=== PATIENT | female | born 1945 | race Caucasian/White ===

== ENCOUNTER 2020-11-23 13:27 | Outpatient (CLI) | payer MEDICARE, SELFPAY ==
--- NOTE | ~2020-11-23 | DEXA_ITS ---
Bone Density Report Name: Jazmín Ogden Age: 75 Sex: Female Ethnicity: White Date of : 1945 Indication: postmenopausal; parental hip fracture; height loss; Referring Provider: Melany Moses Study: Bone densitometry was performed. Exam Date: November 23, 2020 Accession number: [id number] Bone Density: Region BMD T-score Z-score Classification AP Spine (L1-L4) 1.085 0.3 2.8 Normal Femoral Neck (Left) 0.655 -1.8 0.4 Osteopenia Total Hip (Left) 0.781 -1.3 0.6 Osteopenia Total Hip Bilateral Avg 0.762 -1.5 0.4 Osteopenia Femoral Neck (Right) 0.672 -1.6 0.6 Osteopenia Total Hip (Right) 0.743 -1.6 0.2 Osteopenia World Health Organization criteria for BMD impression classify patients as: Normal (T-score at or above -1.0), Osteopenia (T-score between -1.0 and -2.5), or Osteoporosis (T-score at or below -2.5). 10-year Fracture Risk(1): Major Osteoporotic Fracture 22% Hip Fracture 13% Reported Risk Factors: [place] (), Neck BMD=0.655, BMI=23.8, parental fracture (1) FRAX(R) Version 3.08. Fracture probability calculated for an untreated patient. Fracture probability may be lower if the patient has received treatment. Clinical Information Provided by Patient: Parent has had a hip fracture Has used the following medications: Vitamin D Patient maximum height was 62 Menopause Age: 49 Drinks caffeinated beverages Onset of menses at age 16 Number of children 3 Impression: The patient has low bone mass, based on the Left Femoral Neck T-score. The patient has an estimated ten-year risk of hip fracture of 13% and an estimated ten-year risk of major fracture of 22%, based on the WHO FRAX algorithm. The patient has risk factors, including: parental hip fracture. Discussion: BONE DENSITY IS LOW AT ONE OR MORE SKELETAL SITES. THE PATIENT'S BMD AND CLINICAL RISK FACTORS CONTRIBUTE TO THIS PATIENT'S HIGH RISK OF FRACTURE. This patient's lowest T-score is low at one or more skeletal sites. It meets the World Health Organization's (WHO) criteria for ?low bone mass? (T-score between -1.0 and -2.5). The patient's 10-year risk of hip fracture and 10 year risk of a major osteoporotic fracture as calculated by FRAX exceeds the threshold where pharmacological therapy is recommended by the National Osteoporosis Foundation (NOF). However, all treatment decisions require clinical judgment and consideration of individual patient factors, including patient preferences, comorbidities, previous drug use, risk factors not captured in the FRAX model (e.g., frailty, falls, vitamin D deficiency, increased bone turnover, interval significant decline in bone density) and possible under or overestimation of fracture risk by FRAX. The patient should follow a healthful lifestyle (good nutrition with adequate calcium and vitamin D, and appropr
--- NOTE | ~2020-11-23 | MM_ITS ---
EXAMINATION: MM screening daron BI w carlos HISTORY: Screening mammogram TECHNIQUE: Craniocaudal and mediolateral oblique 3-D tomosynthesis images were obtained and synthetic 2-D images were generated. CAD analysis was submitted and interpreted. COMPARISON: 03/15/2017 diagnostic right mammogram 03/02/2017 bilateral digital screening mammogram BREAST PARENCHYMAL COMPOSITION: There are scattered areas of fibroglandular density. FINDINGS: There is no evidence of suspicious mass, calcification, or architectural distortion to sugg est malignancy in either breast. There has been no suspicious interval change. IMPRESSION: 1. No mammographic evidence of malignancy. 2. Recommend routine screening mammography in one year. BI-RADS Category 1: Negative Reviewed, dictated and finalized at location A.
== END 2020-11-23 13:28 | disposition home or self-care (01) ==
LOC: ANHIMG 13:29
PROVIDERS: PCP Internal Medicine; Visit Provider Nurse Practitioner
DX: Z12.31 Encounter for screening mammogram for malignant neoplasm of breast (principal); Z78.0 Asymptomatic menopausal state; M85.89 Other specified disorders of bone density and structure, multiple sites
CPT/HCPCS: 77063; 77067; 77080

== ENCOUNTER 2022-03-07 13:23 | Outpatient (CLI) | payer MEDICARE, SELFPAY ==
--- NOTE | ~2022-03-07 | MM_ITS ---
EXAMINATION: MM screening daron BI w carlos HISTORY: Screening mammogram TECHNIQUE: Craniocaudal and mediolateral oblique 3-D tomosynthesis images were obtained and synthetic 2-D images were generated. CAD analysis was submitted and interpreted. COMPARISON: 11/23/2020 bilateral screening mammogram 03/15/2017 diagnostic right mammogram 03/02/2017 bilateral screening mammogram BREAST PARENCHYMAL COMPOSITION: There are scattered areas of fibroglandular density. FINDINGS: There is no evidence of suspicious mass, calcification, or architectural distortion to sugg est malignancy in either breast. There has been no suspicious interval change. IMPRESSION: 1. No mammographic evidence of malignancy. 2. Recommend routine screening mammography in one year. BI-RADS Category 1: Negative Reviewed, dictated and finalized at location A. E BUILDER
--- NOTE | ~2022-03-07 | DEXA_ITS ---
Bone Density Report Name: BLAYNE ROCK Age: 77 Sex: Female Ethnicity: White Date of : 1945 Indication: osteopenia; monitoring treatment; parental hip fracture; height loss; inflammatory bowel disease; postmenopausal Referring Provider: MONICA SHAW Study: Bone densitometry was performed. Exam Date: March 07, 2022 Accession number: [id number] Bone Density: Region BMD T-score Z-score Classification AP Spine(L1, L2, L4) 1.081 0.4 3.0 Normal Femoral Neck (Left) 0.682 -1.5 0.7 Osteopenia Total Hip (Left) 0.791 -1.2 0.7 Osteopenia Femoral Neck (Right) 0.691 -1.4 0.8 Osteopenia Total Hip (Right) 0.758 -1.5 0.4 Osteopenia Total Hip Mean 0.775 -1.4 0.6 Osteopenia World Health Organization criteria for BMD impression classify patients as: Normal (T-score at or above -1.0), Osteopenia (T-score between -1.0 and -2.5), or Osteoporosis (T-score at or below -2.5). 10-year Fracture Risk: FRAX not reported because: Treated for osteoporosis Previous Exams: Region Exam Age BMD T-score BMD Change BMD Change Date g/cm2 vs Baseline vs Previous AP Spine (L1-L2,L4) 03/07/2022 77 1.081 0.4 0.035 (3.4%)* 0.035 (3.4%)* 11/23/2020 75 1.046 0.1 Total Hip(Left) 03/07/2022 77 0.791 -1.2 0.010 (1.3%) 0.010 (1.3%) 11/23/2020 75 0.781 -1.3 Total Hip(Right) 03/07/2022 77 0.758 -1.5 0.016 (2.1%) 0.016 (2.1%) 11/23/2020 75 0.743 -1.6 *Denotes significance at 95% confidence level, LSC for AP Spine = 0.022 g/cm2, LSC for Total Hip = 0.027 g/cm2 Clinical Information Provided by Patient: Parent has had a hip fracture Is being treated for osteoporosis Has the following medical conditions: Inflammatory bowel diseases Patient maximum height was 62 Menopause Age: 49 Onset of menses at age 13 Number of children 3 Impression: The patient has low bone mass, based on the Right Total Hip T-score. The patient has risk factors, including: parental hip fracture. No significant bone loss was observed. Discussion: PATIENT UNDER TREATMENT WITH NO SIGNIFICANT BMD LOSS SINCE LAST EXAM. In an untreated patient, BMD typically declines with age. A lack of decline or gain is usually a sign that treatment is efficacious and fracture risk is reduced. It is important to ask patients whether they are taking their medications and to encourage continued and appropriate compliance with their osteoporosis therapies to reduce fracture risk. It is also impo
== END 2022-03-07 13:24 | disposition home or self-care (01) ==
LOC: ANHIMG 13:24
PROVIDERS: PCP Internal Medicine; Visit Provider Nurse Practitioner
DX: Z12.31 Encounter for screening mammogram for malignant neoplasm of breast (principal); Z78.0 Asymptomatic menopausal state; M85.89 Other specified disorders of bone density and structure, multiple sites
CPT/HCPCS: 77063; 77067; 77080

== ENCOUNTER 2022-12-07 13:55 | Outpatient (CLI) | payer MEDICARE, SELFPAY ==
--- NOTE | ~2022-12-07 | XR_ITS ---
EXAM: XR hip RT min 2V DATE: 12/07/2022 14:07 HISTORY: Hip pain no injury . COMPARISON: None available. FINDINGS: Decreased mineralization. No fracture or dislocation. No lytic or blastic lesion. Mild low er lumbar degenerative disc disease. Mild bilateral SI joint and hip and moderate pubic symphysis deg enerative change. Scattered pelvic and hip enthesopathy. No erosion or periosteal change. Soft tissue s within normal limits. 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 Moderate osteitis pubis. Reviewed, dictated and finalized at location K. 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 Moderate osteitis p ubis.
== END 2022-12-07 13:56 ==
LOC: GOSHIMG 13:57
PROVIDERS: PCP Internal Medicine; Visit Provider Clinical Nurse Specialist
DX: M16.11 Unilateral primary osteoarthritis, right hip (principal); M25.551 Pain in right hip
CPT/HCPCS: 73502

== ENCOUNTER 2023-03-03 01:42 | Day surgery (SDC) | payer MEDICARE, SELFPAY ==
[2023-02-21 14:56] VITALS: BMI 23.3
--- NOTE | 2023-03-02 13:27 | P.PNAN_ITS ---
Anes - Initial Pre Proc Eval Procedure: Operation Date: 03/03/23 12:30 Proposed Procedures p Colonoscopy - Devon Milian MD Date/Time: 03/02/23 13:27 Surgeon: Devon Milian MD Pre Op Diagnosis: Hx of colon polyps Patient Data Age: 78 Gender: F Height: 1.55 m Weight: 56 kg Allergies Allergy/AdvReac Type Severity Reaction Status Date / Time latex Allergy Unknown Rash Verified 03/03/23 11:01 nitrofurantoin Allergy Unknown Unknown Verified 03/03/23 11:01 Penicillins Allergy Unknown Unknown Verified 03/03/23 11:01 Home Medications Medication Instructions Recorded Confirmed Type acetaminophen 325 mg capsule 325 mg PO Q6H PRN Pain 12/03/20 03/03/23 History biotin 2,500 mcg capsule 2,500 mcg PO DAILY 12/03/20 03/03/23 History loratadine 10 mg capsule 10 mg PO DAILY PRN Allergy Symptoms 12/03/20 03/03/23 History alendronate 35 mg tablet See Rx Instructions .Route 07/08/22 03/03/23 Rx .COMPLEX #12 tabs ibuprofen 400 mg tablet 400 mg PO Q6H PRN Pain 02/21/23 03/03/23 History simvastatin 10 mg tablet 10 mg PO HS 02/21/23 03/03/23 History vitamin B complex 1 tablet PO DAILY 02/21/23 03/03/23 History Patient hx anesthesia problems: none Family hx anesthesia problems: none Results Review: All pre-operative results and documents have been reviewed as part of the pre- operative evaluation. [facility] Past Medical History Medical History Allergies Arthritis Bladder and urethra injury Bladder and Uterine tied up CKD (chronic kidney disease) Hemorrhoids Removed Hyperlipidemia Osteopenia Family History Family History Son Kidney disease Social History Social History Smoking status: Never smoker Alcohol intake: never Substance use type: does not use Living arrangements: with family Spiritual care concerns: No Anes - Eval Final PreProcedure Day of Procedure 03/02/23 13:27 Patient weight: normal Heart: regular rate and rhythm Lungs: clear to auscultation and normal air movement Airway: Mallampati scale class II Neurological: alert and oriented Last oral intake: >/= 8 hours ASA classification: III Emergent: no Anesthetic plan: proceed Anesthesia type and monitoring: general GIVS and standard monitoring Results Review: All pre-operative results and documents have been reviewed as part of the pre-operative evaluation. Informed Consent: The patient's anesthetic plan and its attendant risks and benefits were discussed with the patient/family/POA. Questions were solicited and answers provided to the satisfaction of the patient/family/POA.
[2023-03-03 11:03] VITALS: BP 133/80; PULSE 73; RESP 16; TEMP 36.6; O2SAT 100; BMI 23.0
[2023-03-03] MEDS: LACTATED RINGERS 1,000 ML 150 ML IV CONT (11:14)
--- NOTE | 2023-03-03 11:39 | PM.HPGS ---
History of Present Illness History of Present Illness Consent: Risks, benefits, and alternatives have been discussed and questions answered. Patient agrees to proceed with procedure. Chief complaint: Hx of colon polyps Narrative: Jazmín Ogden is a 78 year old female Referred for colon cancer screening. She had 2 tubular adenomas removed about 5 years ago. Review of Systems Review of Systems: All systems reviewed & are unremarkable except as noted in HPI and below PMFSH Past Medical History Medical History Allergies Arthritis Bladder and urethra injury Bladder and Uterine tied up CKD (chronic kidney disease) Hemorrhoids Removed Hyperlipidemia Osteopenia Family History Family History Son Kidney disease Social History Social History Smoking status: Never smoker Alcohol intake: never Substance use type: does not use Living arrangements: with family Spiritual care concerns: No Meds Home Medications and Allergies Home Medications Medication Instructions Recorded Confirmed Type acetaminophen 325 mg capsule 325 mg PO Q6H PRN Pain 12/03/20 03/03/23 History biotin 2,500 mcg capsule 2,500 mcg PO DAILY 12/03/20 03/03/23 History loratadine 10 mg capsule 10 mg PO DAILY PRN Allergy Symptoms 12/03/20 03/03/23 History alendronate 35 mg tablet See Rx Instructions .Route 07/08/22 03/03/23 Rx .COMPLEX #12 tabs ibuprofen 400 mg tablet 400 mg PO Q6H PRN Pain 02/21/23 03/03/23 History simvastatin 10 mg tablet 10 mg PO HS 02/21/23 03/03/23 History vitamin B complex 1 tablet PO DAILY 02/21/23 03/03/23 History Allergies Allergy/AdvReac Type Severity Reaction Status Date / Time latex Allergy Unknown Rash Verified 03/03/23 11:01 nitrofurantoin Allergy Unknown Unknown Verified 03/03/23 11:01 Penicillins Allergy Unknown Unknown Verified 03/03/23 11:01 Vital Signs Vital Signs - 24 hr 03/03/23 11:03 Temperature 36.6 C Pulse Rate 73 Respiratory Rate 16 Blood Pressure 133/80 Pulse Oximetry 100 Oxygen Delivery Room Air Exam Resp: Auscultation: clear to auscultation bilaterally Cardio: Rate: regular rate Rhythm: regular rhythm GI: GI Palp: Yes Soft to palpation and No Tenderness to palpation present (GI) Assessment and Plan Assessment and plan (1) Screening for colon cancer: Code(s): Z12.11 - Encounter for screening for malignant neoplasm of colon Status: Acute Assessment and Plan: Colonoscopy with possible biopsy or polypectomy or cautery or injection of substances.
[2023-03-03 12:28] VITALS: BP 87/52; PULSE 74; RESP 19; O2SAT 98
[2023-03-03 12:38] VITALS: BP 134/77; PULSE 68; RESP 23; O2SAT 98
[2023-03-03 12:48] VITALS: BP 122/82; PULSE 63; RESP 18; O2SAT 98
== END 2023-03-03 12:57 | disposition home or self-care (01) ==
PROVIDERS: PCP Internal Medicine; Visit Provider Internal Medicine Gastroenterology
PROC: 0DJD8ZZ Inspection of Lower Intestinal Tract, Via Natural or Artificial Opening Endoscopic (ICD-10-PCS; CPT 45378; principal; 2023-03-03 12:30)
DX: Z12.11 Encounter for screening for malignant neoplasm of colon (principal); K57.30 Diverticulosis of large intestine without perforation or abscess without bleeding; Z86.010 Personal history of colon polyps; N18.9 Chronic kidney disease, unspecified; E78.5 Hyperlipidemia, unspecified
CPT/HCPCS: G0105; J2704; J7120